=== PATIENT | female | born 1980 | race Caucasian/White ===

== ENCOUNTER 2017-03-31 20:01 | Emergency (ER) | payer SELFPAY ==
[~2017-03-31] VITALS: Ht 167.6 cm; Wt 62.1 kg
[2017-03-31 20:24] VITALS: Ht 167.6 cm; Wt 62.1 kg
[2017-03-31 23:39] LABS: BASOPHIL % 0.4 % (0-2); PLATELET COUNT 322 x10^3mcL (130-400)
[2017-03-31 23:48] LABS: CALCIUM 8.5 mg/dL (8.5-10.1); CARBON DIOXIDE 23.8 mmol/L (21-32); CHLORIDE SERUM 101 mmol/L (98-107); CREATININE SERUM 0.6 mg/dL (0.6-1.0); GFR1 > 60 mL/min; GLUCOSE SERUM 92 mg/dL (74-106); POTASSIUM SERUM 3.1 mmol/L (3.5-5.1); SODIUM SERUM 137 mmol/L (136-145)
[2017-03-31 23:50] LABS: RED CELL DISTRIBUTION WIDTH 18.3 % (11.5-14.5)
[2017-03-31 23:52] LABS: ALBUMIN 3.4 g/dL (3.4-5.0); ALKALINE PHOSPHATASE 51 U/L (46-116); ALT/SGPT 14 U/L (14-59); AMYLASE 63 U/L (25-115); AST/SGOT 16 U/L (15-37); BILIRUBIN TOTAL 0.51 mg/dL (0.20-1.00); LIPASE 261 IU/L (73-393); TOTAL PROTEIN, SERUM 7.7 g/dL (6.4-8.2)
[2017-04-01 03:06] VITALS: BP 127/74
== END 2017-04-01 03:06 | disposition home or self-care (01) ==
LOC: ED 20:01
PROVIDERS: Emergency Medicine
DX: O99.611 Diseases of the digestive system complicating pregnancy, first trimester (principal); O21.0 Mild hyperemesis gravidarum; K92.9 Disease of digestive system, unspecified; Z3A.12 12 weeks gestation of pregnancy
CPT/HCPCS: 83880; J2765; J3490; J7030; Q0092

== ENCOUNTER 2017-04-09 20:01 | Emergency (ER) | payer SELFPAY ==
[~2017-04-09] VITALS: Ht 170.2 cm; Wt 61.2 kg
[2017-04-09 20:30] VITALS: Ht 170.2 cm; Wt 61.2 kg
[2017-04-09 22:08] LABS: BASOPHIL % 0.3 % (0-2); PLATELET COUNT 296 x10^3mcL (130-400)
[2017-04-09 22:09] LABS: RED CELL DISTRIBUTION WIDTH 18.9 % (11.5-14.5)
[2017-04-10 00:04] VITALS: BP 120/63
== END 2017-04-10 00:04 | disposition home or self-care (01) ==
LOC: ED 20:01
PROVIDERS: Specialist
DX: O20.0 Threatened abortion (principal); O23.41 Unspecified infection of urinary tract in pregnancy, first trimester; Z3A.08 8 weeks gestation of pregnancy
CPT/HCPCS: 36415; Q0092